=== PATIENT | male | born 1945 | race Caucasian/White ===

== ENCOUNTER 2019-12-28 10:06 | Emergency (ER) | payer MEDICARE, OTHER ==
[2019-12-28 12:44] VITALS: BP 108/68
--- NOTE | 2019-12-28 12:46 | UC ---
Respiratory Complaint HPI - HPI Summary HPI Summary: A 74-year-old male comes in with a chief complaint of approximately 10 days of upper respiratory tract infection symptoms. He's had rhinorrhea he's got chest congestion is coughing up yellow and green sputum. He did have a fever earlier on the illness. When he is laying down the congestion gets worse. He has heard some was sling and wheezing in his lungs when he is lying down. Is a getting up makes it better. He has no history of asthma or COPD. He's had increased left shoulder pain but he denies any concern of a heart problem. He has had a frontal headache. - History of Current Complaint Chief Complaint: UCRespiratory Stated Complaint: COLD,CONGESTION Time Seen by Provider: 12/28/19 12:31 Pain Intensity: 0 - Allergies/Home Medications Allergies/Adverse Reactions: Allergies Allergy/AdvReac Type Severity Reaction Status Date / Time No Known Allergies Allergy Verified 12/28/19 11:05 Home Medications: Home Medications Ibuprofen 200 mg PO ONCE 12/28/19 [History Confirmed 12/28/19] PMH/Surg Hx/FS Hx/Imm Hx Previously Healthy: Yes - Surgical History Surgical History: Yes Surgery Procedure, Year, and Place: appy, t&a, inguinal hernia repain, orif to lt wrist, wart removel in 1969,bph - Family History Known Family History: Positive: Non-Contributory - Social History Alcohol Use: Rare Substance Use Type: None Smoking Status (MU): Never Smoked Tobacco Review of Systems All Other Systems Reviewed And Are Negative: Yes Constitutional: Positive: Fever, Other - see hpi Skin: Positive: Negative Eyes: Positive: Negative ENT: Positive: Nasal Discharge, Sinus Congestion Respiratory: Positive: Cough, Other - see hpi Cardiovascular: Positive: Negative Gastrointestinal: Positive: Negative Motor: Positive: Negative Neurovascular: Positive: Negative Musculoskeletal: Positive: Negative Neurological: Positive: Headache Psychological: Positive: Negative Is Patient Immunocompromised?: No Physical Exam Triage Information Reviewed: Yes Appearance: No Pain Distress, Well-Nourished, Ill-Appearing - mild Vital Signs: Initial Vital Signs Temp 98.8 F 12/28/19 11:00 Pulse 63 12/28/19 11:00 Resp 18 12/28/19 11:00 BP 108/68 12/28/19 11:00 Pulse Ox 99 12/28/19 11:00 Vital Signs Reviewed: Yes Eye Exam: Normal Eyes: Positive: Conjunctiva Clear ENT: Positive: Pharyngeal erythema, Nasal congestion, Nasal drainage, TMs normal Neck: Positive: Supple, Nontender Respiratory: Positive: Lungs clear, Normal breath sounds, No respiratory distress Cardiovascular: Positive: RRR Musculoskeletal: Positive: Strength Intact, ROM Intact Neurological: Positive: Alert, Muscle Tone Normal Psychological: Positive: Age Appropriate Behavior Skin Exam: Normal Respiratory Course/Dx - Course Course Of Treatment: We discussed getting a chest x-ray at this time the patient prefers to not get a chest x-ray. We'll treat for bronchitis with bronchospasm with 10 days of symptoms. Patient's to follow-up his primary care doctor get reevaluated sooner if worse requests concerns. - Differential Dx/Diagnosis Provider Diagnosis: Bronchitis with bronchospasm Discharge ED - Sign-Out/Discharge Documenting (check all that apply): Patient Departure All imaging exams completed and their final reports reviewed: No Studies - Discharge Plan Condition: Stable Disposition: HOME Prescriptions: Albuterol HFA INHALER* [Ventolin HFA Inhaler*] 2 puff INH Q4H PRN #1 mdi PRN Reason: Wheezing DOXYcycline CAP(*) [DOXYcycline 100MG CAP(*)] 100 mg PO BID #20 cap Patient Education Materials: Acute Bronchitis (ED), Bronchospasm (ED) Referrals: [facility] [Outside] Additional Instructions: FOLLOW UP WITH YOUR DOCTOR IF NOT COMPLETELY IMPROVED. GET REEVALUATED SOONER IF NOT IMPROVED OR WORSE OR ANY QUESTIONS OR CONCERNS. - Billing Disposition and Condition Condition: STABLE Disposition: Home
== END 2019-12-28 13:00 | disposition home or self-care (01) ==
LOC: UCEAST 10:06
DX: J40 Bronchitis, not specified as acute or chronic (principal); J98.01 Acute bronchospasm; R09.89 Other specified symptoms and signs involving the circulatory and respiratory systems; R09.81 Nasal congestion; R51 Headache
CPT/HCPCS: 99202; G0463